=== PATIENT | female | born 2005 | race Two or more races ===

== ENCOUNTER → 2024-02-16 10:34 | Outpatient (CLI) | payer OTHER | END | disposition home or self-care (01) | LOC: PRENATAL 10:34 | PROVIDERS: ATTEND Obstetrics & Gynecology Maternal & Fetal Medicine | DX: O44.00 Complete placenta previa NOS or without hemorrhage, unspecified trimester (principal); O36.8199 Decreased fetal movements, unspecified trimester, other fetus; O36.1999 Maternal care for other isoimmunization, unspecified trimester, other fetus; Z3A.30 30 weeks gestation of pregnancy ==

== ENCOUNTER 2024-03-15 14:13 | Inpatient (IN) | payer OTHER ==
[~2024-03-15] VITALS: Ht 162.6 cm; Wt 67.1 kg
[2024-03-15 13:52] VITALS: BP 100/64
[2024-03-15] MEDS ORDERED: RINGERS SOLUTION,LACTATED 1,000 ML IV SCH (14:30)
[2024-03-15] MEDS ORDERED: NIFEDIPINE 30 MG TAB.SA.OSM PO NR (14:30)
[2024-03-15] MEDS ORDERED: PRENATAL TABLE1 EAC4 PO (14:39)
[2024-03-15] MEDS ORDERED: BETAMETHASONE ACETATE,SOD PHOS 30 MG/5 ML ML IM STA (14:40)
[2024-03-15 15:15] VITALS: BP 99/60
[2024-03-15 15:23] LABS: HEMATOCRIT 32.3 % (36.0-45.00); MEAN CELL VOLUME 85.3 fL (80.00-100.00); PLATELET COUNT 368 K/uL (150-450); RED BLOOD COUNT 3.78 M/uL (4.00-6.00); RED CELL DISTRIBUTION WIDTH 13.5 % (11.5-14.5); URINE APPEARANCE Clear; URINE BILIRRUBIN Negative (NEGATIVE); URINE BLOOD Negative; URINE COLOR Yellow; URINE GLUCOSE Negative (NEGATIVE); URINE KETONE Negative (NEGATIVE); URINE LEUKOCYTE Large; URINE NITRATE Negative; URINE PROTEIN Negative (NEGATIVE); URINE UROBILINOGEN 0.2 E.U./dl
[2024-03-15 15:24] LABS: URINE BACTERIA 3888.5 uL (0.0-1933); URINE EPITHELIAL CELLS 141.7 uL (0.0-38.8)
[2024-03-15 15:43] LABS: URINE CAST 0.44 uL (0.0-1.40); URINE RBC 1.6 uL (0.0-20.8)
[2024-03-15 15:49] LABS: INR < 0.93; PROTHROMBIN TIME 9.9 SECONDS (9.0-11.5)
[2024-03-15 15:52] LABS: ALBUMIN 2.9 gm/dL (3.4-5.0); BILIRUBIN TOTAL 0.31 mg/dL (0.3-1.2); CALCIUM 9.4 mg/dL (8.5-10.1); CREATININE SERUM 0.37 mg/dL (0.55-1.02); GFR 222.65; GLOBULINA 3.3 G/DL (2.4-3.5); POTASSIUM 4.76 mEq/L (3.5-5.1); TOTAL PROTEIN 6.2 gm/dL (6.4-8.2)
[2024-03-15] MEDS ORDERED: CEFAZOLIN SODIUM 1,000 MG VIAL ONE (16:36)
[2024-03-15] MEDS ORDERED: CEFAZOLIN SODIUM 1,000 MG VIAL IV ONE (17:00)
[2024-03-15 19:05] VITALS: BP 103/64
[2024-03-15] MEDS ORDERED: ACETAMINOPHEN 500 MG GEL..CAP PO ONE ×2 (19:16→19:45)
[2024-03-15] MEDS ORDERED: TERBUTALINE SULFATE 1 MG/ML AMPUL ONE (19:17)
[2024-03-15] MEDS ORDERED: TERBUTALINE SULFATE 1 MG/ML AMPUL SUBCUTANEO ONE (19:45)
[2024-03-15 23:30] VITALS: BP 94/61
[2024-03-16] VITALS (8 sets, daily range): BP systolic 98–115; BP diastolic 60–78; O2SAT 18–99
[2024-03-16] MEDS ORDERED: CEFAZOLIN SODIUM 1,000 MG VIAL IV SCH
[2024-03-16] MEDS ORDERED: BETAMETHASONE ACETATE,SOD PHOS 30 MG/5 ML ML IM SCH (14:45)
[2024-03-17 02:53] VITALS: BP 116/71
[2024-03-17 07:37] VITALS: BP 107/64
== END 2024-03-17 13:39 | disposition left against medical advice (07) | DRG 832 ==
LOC: OBS/DEL 14:13 → LDR 03-16 11:25 → OBS/DEL 03-16 11:25 → LDR 03-17 13:39
PROVIDERS: ADMIT Obstetrics & Gynecology Obstetrics; ATTEND Obstetrics & Gynecology Obstetrics
PROC: 4A1HXCZ Monitoring of Products of Conception, Cardiac Rate, External Approach (ICD-10-PCS; principal; 2024-03-16)
PROC: BY4FZZZ Ultrasonography of Third Trimester, Single Fetus (ICD-10-PCS; 2024-03-16)
PROC: BU4CZZZ Ultrasonography of Uterus and Ovaries (ICD-10-PCS; 2024-03-16)
PROC: BY47ZZZ Ultrasonography of Fetal Umbilical Cord (ICD-10-PCS; 2024-03-16)
DX: O60.03 Preterm labor without delivery, third trimester (principal); O36.0930 Maternal care for other rhesus isoimmunization, third trimester, not applicable or unspecified; O26.843 Uterine size-date discrepancy, third trimester; O36.8130 Decreased fetal movements, third trimester, not applicable or unspecified; Z3A.35 35 weeks gestation of pregnancy; O36.5930 Maternal care for other known or suspected poor fetal growth, third trimester, not applicable or unspecified; Z53.29 Procedure and treatment not carried out because of patient's decision for other reasons

== ENCOUNTER 2024-04-15 17:53 | Inpatient (IN) | payer OTHER ==
[~2024-04-15] VITALS: Ht 162.6 cm; Wt 2.7 kg
[~2024-04-15 17:53] MED LIST: PRENATAL TABLE1 EAC4 PO
[2024-04-15 17:55] VITALS: BP 117/73
[2024-04-15] MEDS ORDERED: RINGERS SOLUTION,LACTATED 1,000 ML IV SCH (18:15)
[2024-04-15 19:06] LABS: HEMATOCRIT 34.7 % (36.0-45.00); HEMOGLOBIN 11.2 g/dL (12.0-15.00); MEAN CELL VOLUME 82.6 fL (80.00-100.00); MEAN CORPUSCULAR HEMOGLOBIN 26.6 pg (27.00-32.0); MEAN CORPUSCULAR HGB CONC 32.2 g/dl (32.0-36.0); PLATELET COUNT 393 K/uL (150-450); RED CELL DISTRIBUTION WIDTH 14.1 % (11.5-14.5)
[2024-04-15 19:09] LABS: URINE APPEARANCE Clear; URINE BILIRRUBIN Negative (NEGATIVE); URINE BLOOD Negative; URINE COLOR Yellow; URINE GLUCOSE Negative (NEGATIVE); URINE KETONE Negative (NEGATIVE); URINE LEUKOCYTE Small; URINE NITRATE Negative; URINE PROTEIN Negative (NEGATIVE)
[2024-04-15 19:13] LABS: URINE BACTERIA 483.3 uL (0.0-1933); URINE EPITHELIAL CELLS 136.4 uL (0.0-38.8); URINE RBC 5.5 uL (0.0-20.8); URINE WBC 74.8 uL (0.0-23.2)
[2024-04-15 19:25] LABS: INR < 0.93; PARTIAL THROMBOPLASTIN TIME 24.5 SECONDS (22.0-34.0); PROTHROMBIN TIME 9.8 SECONDS (9.0-11.5)
[2024-04-15 19:27] LABS: BILIRUBIN TOTAL 0.32 mg/dL (0.3-1.2); CALCIUM 9.2 mg/dL (8.5-10.1); CREATININE SERUM 0.55 mg/dL (0.55-1.02); GFR 140.91; GLOBULINA 3.6 G/DL (2.4-3.5); POTASSIUM 4.24 mEq/L (3.5-5.1); TOTAL PROTEIN 6.6 gm/dL (6.4-8.2)
[2024-04-15 19:36] LABS: URINE CAST 0.58 uL (0.0-1.40); URINE CRYSTALS FEW /HPF
[2024-04-15 20:35] VITALS: BP 121/55
[2024-04-15] MEDS ORDERED: ACETAMINOPHEN 500 MG GEL..CAP PO ONE ×2 (21:36→21:40)
[2024-04-15] MEDS ORDERED: ACETAMINOPHEN 500 MG GEL..CAP PO STA (21:36)
[2024-04-15 23:21] VITALS: BP 122/63
[2024-04-16 02:31] VITALS: BP 121/66
[2024-04-16] MEDS ORDERED: NIFEDIPINE 30 MG TAB.SA.OSM PO ONE ×2 (02:45→03:11)
[2024-04-16 07:36] VITALS: BP 99/53
[2024-04-16 11:05] VITALS: BP 99/55
[2024-04-16 15:14] VITALS: BP 127/64
[2024-04-16 18:59] VITALS: BP 115/63
[2024-04-16 23:29] VITALS: BP 122/59; O2SAT 99
[2024-04-17 04:23] VITALS: BP 114/58; O2SAT 99
[2024-04-17 07:45] VITALS: BP 119/69
[2024-04-17] MEDS ORDERED: MISOPROSTOL 25 MCG/4 ML GEL.W.APPL VAG ONE (11:30)
[2024-04-17] MEDS ORDERED: OXYTOCIN 10 UNITS/ML VIAL ONE (11:45)
[2024-04-17] MEDS ORDERED: ERYTHROMYCIN BASE OPHT 1GM EACH TUBE OP ONE (11:45)
[2024-04-17 11:58] VITALS: BP 107/48
[2024-04-17] MEDS ORDERED: MORPHINE SULFATE 4 MG/ML CARTRIDGE IV PRN (13:15)
[2024-04-17] MEDS ORDERED: CEFOXITIN SODIUM 2,000 MG VIAL IV ONE (13:18)
[2024-04-17] MEDS ORDERED: MEPERIDINE HCL 25 MG/ML AMPUL IV ONE (13:50)
[2024-04-17] MEDS ORDERED: MORPHINE SULFATE 4 MG/ML VIAL IV ONE ×2 (14:00→15:00)
[2024-04-17 16:22] VITALS: BP 122/71
[2024-04-17] MEDS ORDERED: OxyCODONE HCL/APAP UD (PERCOCET) PO PRN (21:00)
[2024-04-18] VITALS: BP 108/70
[2024-04-18 08:59] VITALS: BP 114/73
[2024-04-18 16:26] VITALS: BP 114/71
[2024-04-18 23:18] VITALS: BP 114/60
[2024-04-19 07:50] VITALS: BP 119/75
[2024-04-19 17:20] VITALS: BP 121/80
[2024-04-19] MEDS ORDERED: FF) RHO(D) IMMUNE GLOBULIN (POM) IM STA (17:50)
[2024-04-20 01:00] VITALS: BP 123/79
[2024-04-20 08:22] VITALS: BP 111/75
== END 2024-04-20 16:05 | disposition home or self-care (01) | DRG 788 ==
LOC: LDR 17:53 → OB/GYN 04-17 14:37
PROVIDERS: ADMIT Obstetrics & Gynecology Obstetrics; ATTEND Obstetrics & Gynecology Obstetrics
PROC: 4A1HXCZ Monitoring of Products of Conception, Cardiac Rate, External Approach (ICD-10-PCS; 2024-04-15)
PROC: 3E033VJ Introduction of Other Hormone into Peripheral Vein, Percutaneous Approach (ICD-10-PCS; 2024-04-17)
PROC: 3E0P7VZ Introduction of Hormone into Female Reproductive, Via Natural or Artificial Opening (ICD-10-PCS; 2024-04-17)
PROC: 10D00Z1 Extraction of Products of Conception, Low, Open Approach (ICD-10-PCS; principal; 2024-04-17 11:00)
DX: O36.8330 Maternal care for abnormalities of the fetal heart rate or rhythm, third trimester, not applicable or unspecified (principal); Z3A.39 39 weeks gestation of pregnancy; Z37.0 Single live birth